=== PATIENT | male | born 1985 | race African-American/Black ===

== ENCOUNTER 2016-08-01 12:11 | Emergency (ER) | payer OTHER ==
[~2016-08-01] VITALS: Ht 188 cm; Wt 127.0 kg
[~2016-08-01 12:11] MED LIST: DILAUDID2 M1 PO; LEVETIRACETAM1000 MG PO; MASON NATURAL325 MG PO; METAMUCIL1 PAC PO; NORVASC 5MG TAB5 MG PO; PANTOPRAZOLE SO40 MG PO; PROMETHAZINE HC25 M3 PO; TRAMADOL50 MG PO; VICODIN 300 MG-1 TAB PO; VICODIN 500 MG-1 TAB PO; ZOFRAN 4 MG TABL4 MG PO; ZOFRAN ODT4 MG PO
--- NOTE | 2016-08-01 12:22 | ED GI/GU/ABDOMINAL COMPLAINT ---
History of Present Illness General Chief Complaint: Abdominal Pain/Flank Pain Stated Complaint: ABD PAIN, VOMITING Source: patient Exam Limitations: no limitations Vital Signs & Intake/Output Vital Signs & Intake/Output Vital Signs Date Time Temp Pulse Resp B/P Pulse O2 O2 Flow FiO2 Ox Delivery Rate 08/01 1453 99.8 76 18 137/64 97 Room Air 08/01 1339 Room Air 08/01 1304 99.2 72 16 174/84 100 Room Air 08/01 1239 99.5 63 18 167/85 99 Room Air 08/01 1217 97.6 80 20 164/103 99 Room Air ED Intake and Output 08/02 0000 08/01 1200 Intake Total 1000 Output Total Balance 1000 Intake, IV 1000 Patient 280 lb Weight Allergies Coded Allergies: NO KNOWN ALLERGIES (04/13/14) Reconcile Medications Acetaminophen/Hydrocodone Bi (Vicodin 500 MG-5 MG) 1 TAB TAB 1 TAB PO Q412 PRN PAIN Amlodipine (Norvasc 5MG Tab) 5 MG TABLET 1 TAB PO DAILY HTN (Reported) Ferrous Sulfate 325 MG (65 MG IRON) TABLET 1 TAB PO DAILY LOW IRON (Reported) HYDROCODONE/ACETAMINOPHEN (Vicodin 5-300 MG Tablet) 5 MG-300 MG TABLET 1 TAB PO Q4-6 PRN PAIN Hydromorphone HCl (Dilaudid) 2 MG TABLET 1 TAB PO 4XDP PRN pain Hyoscyamine (Levsin) 0.125 MG TABLET 1 TAB PO Q4 PRN abdominal pain Levetiracetam 1,000 MG TABLET 1 TAB PO BID SEIZURES (Reported) Ondansetron (Zofran 4 MG Tablet) 4 MG TAB 1 TAB PO Q6 PRN NAUSEA Ondansetron (Zofran Odt) 4 MG TAB.RAPDIS 1 TAB PO Q8P PRN NAUSEA Pantoprazole Sodium 40 MG TABLET.DR 1 TAB PO DAILY GERD (Reported) Prochlorperazine Maleate (Compazine) 10 MG TABLET 1 TAB PO TID PRN NAUSEA Promethazine HCl 25 MG TABLET 1 TAB PO Q6P PRN nausea Psyllium Hydrophylic Muciloid (Metamucil Packet) 3.4 GRAM POWD.PACK 1 PAC PO PRN BI HEALTH (Reported) Triage Note: RECEIVED 31 YO MALE C/O ABDOMINAL PAIN X ONE WEEK WITH NAUSEA AND VOMITING. PT REPORTS HE IS UNABLE TO KEEP ANYTHING DOWN. PT BEEN TAKING NAUSEA MEDS AND PAIN MEDS AT HOME. Triage Nurses Notes Reviewed? yes Onset: Gradual Duration: week(s): (1) Timing: recent history Quality/Severity: cramping Severity Numbers: 8 Location: generalized abdomen Radiation: no radiation Activities at Onset: none Prior Abdominal Problems: similar symptoms Past Sexual History: Unobtainable at this time HPI: Patient is a 31-year-old male who smokes marijuana daily presenting to the emergency Department chief complaint of diffuse abdominal pain, nausea and vomiting worsening over the past 1 week. Patient reports he had similar symptoms in the past and he was treated with IV fluids, nausea medication. Denies following up with his primary care physician. Denies any chest pain, palpitations. Denies recent travel. Positive decked out fevers and chills. Positive malaise. (SON LITTLE) Past History Travel History Traveled to [place] past 21 day No Medical History Any Pertinent Medical History? see below for history Blood Disorders: anemia History of MRSA: No Surgical History Surgical History: none Psychosocial History What is your primary language Moroccan Family History Hx Contributory? No (SON LITTLE) Review of Systems Review of Systems Constitutional: Reports: malaise. Comments Review of systems: See HPI, All other systems negative. Constitutional, no weight loss HEENT: No visual changes no sore throat no congestion Cardiovascular: No chest pain ,palpitation , orthopnea or ankle swelling Skin, no jaundice no rashes Respiratory: No dyspnea cough sputum or hemoptysis GI: Positive Nausea, vomiting : No dysuria No hematuria Muscle skeletal: no back pain, no neck pain, Neurologic: No numbness no confusion Psych: No stress anxiety or depression,. Heme/endocrine: No bruising no bleeding no polyuria or polydipsia Immunology: No splenectomy or history of AIDS (SON LITTLE) Physical Exam Physical Exam General Appearance: alert, awake, mild distress Gastrointestinal: normal bowel sounds, soft, non-tender Comments: Well-developed well-nourished person in no acute distress HEENT: Pupils equally round and reactive to light and accommodation. Nose is atraumatic. External auditory canal and Tympanic membranes clear. Pharynx normal. No swelling or edema. Slightly dry oral mucosa. Neck: Normal inspection Cardiovascular: Regular rate and rhythms no murmurs rubs or gallops, normal JVP Respiratory: Chest nontender. No respiratory distress.breath sounds clear to auscultation bilaterally Abdomen: Soft, nontender nondistended, no appreciable organomegaly. Normal bowel sounds. No ascites no rebound or guarding Extremity: No edema Neuro: Alert oriented x3 Skin: No appreciable rash on exposed skin, skin is warm and dry. Psych: Mood and affect is normal, memory and judgment is normal. Core Measures ACS in differential dx? No Severe Sepsis Present: No Septic Shock Present: No (INES PAUL,SON) Progress Differential Diagnosis: appendicitis, biliary colic, diverticulitis, gastritis, ureterolithiasis, UTI/pyelo, CYCLICAL VOMITING SYNDROME, DEHYDRATION, ELECTROLYTE ABNORMALITY, PANCREATITIS Plan of Care: Orders Procedure Date/time Status URINALYSIS 08/01 1221 Complete LIPASE 08/01 1221 Complete COMPREHENSIVE METABOLIC PANEL 08/01 1221 Complete CBC WITHOUT DIFFERENTIAL 08/01 1221 Complete AMYLASE 08/01 1221 Complete Laboratory Tests 08/01/16 1423: Urinalysis MOD H, Urine Color YULY, Urine Clarity CLEAR, Urine pH 6.0, Ur Specific [place] >= 1.030, Urine Protein 100 H, Urine Ketones >=80, Urine Nitrite NEG, Urine Bilirubin NEG, Urine Urobilinogen 0.2, Ur Leukocyte Esterase NEG, Ur Microscopic SEDIMENT EXAMINED, Urine WBC RARE, Ur Epithelial Cells RARE, Hyaline Casts RARE H, Urine Mucus PACKD H, Urine Hemoglobin NEG, Urine Glucose NEG 08/01/16 1225: Anion Gap 16, Estimated GFR > 60, BUN/Creatinine Ratio 14.4, Glucose 125 H, Calcium 10.1, Total Bilirubin 0.7, AST 25, ALT 47, Alkaline Phosphatase 81, Total Protein 8.8 H, Albumin 5.0, Globulin 3.8, Albumin/Globulin Ratio 1.3, Amylase 106, Lipase 93, CBC w Diff MAN DIFF ORDERED, RBC 4.86, MCV 64.8 L, MCH 19.5 L, RDW 20.2 H, MPV 9.8, Segmented Neutrophils 86 H, Band Neutrophils 1, Lymphocytes 10 L, Monocytes 3, Platelet Estimate ADEQUATE, Hypochromic- Microcytic 3+, Poikilocytosis 3+, Anisocytosis 2+, Microcytic Cells 2+, Ovalocytes 2+, Elliptocytes 2+, PUBS MCHC 30.1 L Initial ED EKG: none Comments: 08/01/2016 1:51:25 PM at arrival patient is afebrile in no acute distress, no abdominal pain on exam. Patient will be medicated with IV fluids, IV Phenergan and Ativan. Patient does smoke marijuana twice a day. He's been doing this for "a while. This could be congealing to patient's symptoms. Patient will be reevaluated once medicated. 08/01/2016 2:51:58 PM patient resting quietly in no acute distress. Patient has not vomited once in the emergency department. There was some sputum in the basin but no vomiting. Patient will be started on nausea medication and medication help with his abdominal discomfort. Patient is afebrile, nontender and no elevation in white blood cell come. No indication for CT of the abdomen at this time. Patient tolerating by mouth without nausea or vomiting. Patient discharged home. He'll follow with PCP. (SON LITTLE) Departure Departure Time of Disposition: 1414 Disposition: HOME OR SELF CARE Condition: Stable Clinical Impression Primary Impression: Nausea & vomiting Qualifiers: Vomiting type: unspecified Vomiting Intractability: non-intractable Qualified Code: R11.2 - Nausea with vomiting, unspecified Referrals: MERARI MCKEON (PCP/Family) JORDAN MENDENHALL,KENNETH Griffith Additional Instructions: Follow-up with your primary care physician and gastroenterology call to make appointment. Increase fluids. Take Compazine as prescribed for nausea. Take Bentyl to help with abdominal pain. Quit smoking marijuana as this could be contributing to her symptoms. Departure Forms: Customer Survey General Discharge Information Prescriptions: Current Visit Scripts Hyoscyamine (Levsin) 1 TAB PO Q4 PRN abdominal pain #15 TAB Prochlorperazine Maleate (Compazine) 1 TAB PO TID PRN NAUSEA #10 TAB (SON LITTLE) PA/BEEF CATTLE FARMER Co-Sign Statement Statement: ED Attending supervision documentation- [] I saw and evaluated the patient. I have also reviewed all the pertinent lab results and diagnostic results. I agree with the findings and the plan of care as documented in the PA's/BEEF CATTLE FARMER's documentation. X I have reviewed the ED Record and agree with the PA's/BEEF CATTLE FARMER's documentation. [] Additions or exceptions (if any) to the PAs/BEEF CATTLE FARMER's note and plan are summarized below: [] (ANILA MENDENHALL,JOSE ROBERTO)
[2016-08-01 12:38] LABS: HEMATOCRIT 31.5 % (42-52); MEAN CORPUSCULAR VOLUME 64.8 FL (80.0-94.0); MEAN PLATELET VOLUME 9.8 FL (7.4-10.4)
[2016-08-01 12:43] LABS: MEAN CORPUSCULAR HGB 19.5 PG (27.0-31.0); MEAN CORPUSCULAR HGB CONC 30.1 G/DL (33.0-37.0); PLATELET COUNT 332 /CUMM (130-400); RBC DISTRIBUTION WIDTH 20.2 % (11.5-14.5); RED BLOOD CELL CT 4.86 /CUMM (4.70-6.10); WHITE BLOOD CELL COUNT 8.8 /CUMM (4.8-10.8)
[2016-08-01] MEDS ORDERED: COMPAZINE10 M1 PO (14:17)
[2016-08-01] MEDS ORDERED: LEVSIN0.125 M1 PO (14:17)
[2016-08-01 14:53] VITALS: BP 137/64
[2016-08-02] MEDS ORDERED: ULTRAM50 M1 PO (12:33)
[2016-08-02] MEDS ORDERED: KEPPRA1000 M1 PO (15:24)
[2016-08-02] MEDS ORDERED: ZOFRAN ODT4 M1 SL (15:24)
[2016-08-02] MEDS ORDERED: COMPAZINE10 M1 PO (17:01)
[2016-08-02] MEDS ORDERED: VICODIN 5-3001 EACH PO (17:08)
== END 2016-08-01 15:48 ==
LOC: ERH 12:11
PROVIDERS: Physician Assistant
DX: R11.2 Nausea with vomiting, unspecified (principal)
CPT/HCPCS: 81001; 96361; 96374; 96375; J1885; J2405; J2550

== ENCOUNTER 2016-08-02 07:44 | Emergency (ER) | payer OTHER ==
[~2016-08-02] VITALS: Ht 188 cm; Wt 124.7 kg
[~2016-08-02 07:44] MED LIST changes: +COMPAZINE10 M1 PO; +LEVSIN0.125 M1 PO
--- NOTE | 2016-08-02 08:42 | ED GI/GU/ABDOMINAL COMPLAINT ---
History of Present Illness General Chief Complaint: Abdominal Pain/Flank Pain Stated Complaint: VOMITING ABD PAIN SEEN HERE YESTERDAY FOR SAME Source: patient, old records Exam Limitations: no limitations Vital Signs & Intake/Output Vital Signs & Intake/Output Vital Signs Date Time Temp Pulse Resp B/P Pulse O2 O2 Flow FiO2 Ox Delivery Rate 08/02 1651 100.1 76 16 152/76 99 Room Air 08/02 1451 100.2 74 20 142/81 97 Room Air 08/02 1334 100.9 73 20 152/95 99 Room Air 08/02 1104 98.0 88 19 158/86 97 Room Air 08/02 0902 Room Air Room Air 08/02 0757 99.0 85 20 167/103 99 Room Air Allergies Coded Allergies: NO KNOWN ALLERGIES (08/02/16) Reconcile Medications Amlodipine (Norvasc 5MG Tab) 5 MG TABLET 1 TAB PO DAILY HTN (Reported) Hyoscyamine (Levsin) 0.125 MG TABLET 1 TAB PO Q4 PRN abdominal pain Levetiracetam 1,000 MG TABLET 1 TAB PO BID SEIZURES (Reported) Levetiracetam (Keppra) 1,000 MG TABLET 1 TAB PO BID seizure Ondansetron (Zofran 4 MG Tablet) 4 MG TAB 1 TAB PO Q6 PRN NAUSEA Ondansetron (Zofran Odt) 4 MG TAB.RAPDIS 1 TAB SL TID PRN nausea Triage Note: C/O WORSENING ABDOMINAL PAIN WITH VOMITING, UNABLE TO SLEEP X 1 WEEK. SEEN HERE YESTERDAY FOR SXS. MEDS NOT HELPING (HYOSCAMINE AND PNERGAN). STATES HE IS HAVING DIFFICULTY URINATING. Triage Nurses Notes Reviewed? yes Onset: Last week Duration: day(s):, continues in ED, waxing and waning Timing: recent history Quality/Severity: aching, cramping, moderate, severe, vomiting Location: left lower quadrant, right lower quadrant Radiation: no radiation Activities at Onset: eating Prior Abdominal Problems: similar symptoms Past Sexual History: Unobtainable at this time Modifying Factors: Worsens With: eating. Associated Symptoms: abdominal pain, loss of appetite, nausea/vomiting HPI: 1 week prior to admission patient complains of bilateral lower quadrant abdominal pain described as moderate to severe aching nonradiating associated with nausea vomiting decreased appetite. Increasing yesterday with negative workup. He had CT scan last month that was normal. He denies fever chills chest pain cough shortness of breath headache dysuria rash. Past History Travel History Traveled to [place] past 21 day No Medical History Any Pertinent Medical History? see below for history Neurological: NONE EENT: NONE Cardiovascular: NONE Respiratory: NONE Gastrointestinal: HEMMORHOIDS Hepatic: NONE Renal: NONE Musculoskeletal: NONE Psychiatric: NONE Endocrine: NONE Blood Disorders: anemia Cancer(s): NONE History of MRSA: No Surgical History Surgical History: none Psychosocial History What is your primary language Bulgarian Tobacco Use: Current Daily Use Daily Tobacco Use Amount/Type: => 5 Cigarettes daily ETOH Use: occasional use Family History Hx Contributory? No Review of Systems Review of Systems Constitutional: Reports: see HPI, malaise, weakness. EENTM: Reports: no symptoms. Respiratory: Reports: no symptoms. Cardiovascular: Reports: no symptoms. GI: Reports: see HPI, abdominal pain, nausea. Genitourinary: Reports: no symptoms. Musculoskeletal: Reports: no symptoms. Skin: Reports: no symptoms. Neurological/Psychological: Reports: no symptoms. Hematologic/Endocrine: Reports: no symptoms. Immunologic/Allergic: Reports: no symptoms. All Other Systems: Reviewed and Negative Physical Exam Physical Exam General Appearance: well developed/nourished, alert, awake, anxious, moderate distress, obese Head: atraumatic, normal appearance Eyes: Bilateral: normal appearance, PERRL, EOMI, normal inspection. Ears, Nose, Throat, Mouth: hearing grossly normal, moist mucous membrane Neck: normal inspection, supple, full range of motion, normal alignment Respiratory: normal breath sounds, chest non-tender, no respiratory distress, quiet respiration, lungs clear Cardiovascular: regular rate/rhythm, normal peripheral pulses, norml femoral pulses equa Peripheral Pulses: 4+ carotid (R), 4+ carotid (L) Gastrointestinal: normal bowel sounds, soft, non-tender, no organomegaly Male Genitals: normal genitalia Back: normal inspection, normal range of motion Extremities: normal range of motion, no ligament instability Neurologic/Psych: no motor/sensory deficits, awake, alert, oriented x 3, normal gait, normal mood/affect Skin: intact, normal color Core Measures ACS in differential dx? No Severe Sepsis Present: No Septic Shock Present: No Progress Differential Diagnosis: gastritis, UTI/pyelo, adverse marijuana effects Plan of Care: Orders Procedure Date/time Status URINE DRUG SCREEN FOR ER ONLY 08/02 817 Complete URINALYSIS 08/02 817 Complete LIPASE 08/02 817 Complete COMPREHENSIVE METABOLIC PANEL 08/02 817 Complete CBC WITHOUT DIFFERENTIAL 08/02 817 Complete Laboratory Tests 08/02/16 1100: Urine Opiates Screen < 100.00, Methadone Screen 59, Barbiturate Screen < 60, Ur Phencyclidine Scrn < 6.00, Amphetamines Screen < 100, U Benzodiazepines Scrn < 85, Urine Cocaine Screen < 50, Urine Cannabis Screen > 80.00 H, Urinalysis LIGHT H, Urine Color YEL, Urine Clarity CLEAR, Urine pH 7.5, Ur Specific Cameron 1.020, Urine Protein TRACE H, Urine Ketones 15 H, Urine Nitrite NEG, Urine Bilirubin NEG, Urine Urobilinogen 0.2, Ur Leukocyte Esterase NEG, Ur Microscopic SEDIMENT EXAMINED, Urine RBC 1-3, Urine WBC 1-3 H, Hyaline Casts RARE H, Urine Mucus PACKD H, Urine Hemoglobin NEG, Urine Glucose NEG 08/02/16 0841: Anion Gap 10, Estimated GFR > 60, BUN/Creatinine Ratio 15.6, Glucose 103 H, Calcium 9.5, Total Bilirubin 0.7, AST 22, ALT 40, Alkaline Phosphatase 69, Total Protein 8.0, Albumin 4.6, Globulin 3.4, Albumin/Globulin Ratio 1.4, Lipase 240, CBC w Diff MAN DIFF ORDERED, RBC 4.54 L, MCV 65.3 L, MCH 19.6 L, RDW 20.1 H, MPV 9.8, Segmented Neutrophils 72, Lymphocytes 17 L, Monocytes 11 H, Platelet Estimate ADEQUATE, Hypochromic-Microcytic 3+, Poikilocytosis 3+, Anisocytosis 2+ , Microcytic Cells 2+, Ovalocytes 2+, Elliptocytes 2+, Schistocytes 1+, PUBS MCHC 30.0 L Initial ED EKG: none Comments: Non compliant with Keppra with generalized seizure less than 1 minute. Having 2nd one prior to administration of Keppra or Ativan. Departure Departure Time of Disposition: 1651 Disposition: HOME OR SELF CARE Condition: Stable Clinical Impression Primary Impression: Abdominal pain Qualifiers: Abdominal location: unspecified location Qualified Code: R10.9 - Unspecified abdominal pain Secondary Impressions: Marijuana abuse, Seizure disorder Referrals: MERARI MCKEON (PCP/Family) Departure Forms: Customer Survey General Discharge Information Prescriptions: Current Visit Scripts Levetiracetam (Keppra) 1 TAB PO BID #60 TAB Ref 1 Ondansetron (Zofran Odt) 1 TAB SL TID PRN nausea #15 TAB Critical Care Note Critical Care Note Critical Care Time: 30-74 min (40)
[2016-08-02 08:51] LABS: RED BLOOD CELL CT 4.54 /CUMM (4.70-6.10)
[2016-08-02 08:54] LABS: HEMATOCRIT 29.6 % (42-52); MEAN CORPUSCULAR HGB 19.6 PG (27.0-31.0); MEAN CORPUSCULAR VOLUME 65.3 FL (80.0-94.0); MEAN PLATELET VOLUME 9.8 FL (7.4-10.4); PLATELET COUNT 308 /CUMM (130-400); RBC DISTRIBUTION WIDTH 20.1 % (11.5-14.5)
[2016-08-02] MEDS ORDERED: ULTRAM50 M1 PO (12:33)
[2016-08-02] MEDS ORDERED: ZOFRAN ODT4 M1 SL (15:24)
[2016-08-02] MEDS ORDERED: KEPPRA1000 M1 PO (15:24)
[2016-08-02 16:51] VITALS: BP 152/76
[2016-08-02] MEDS ORDERED: COMPAZINE10 M1 PO (17:01)
[2016-08-02] MEDS ORDERED: VICODIN 5-3001 EACH PO (17:08)
== END 2016-08-02 17:09 ==
LOC: ERH 07:44
PROVIDERS: Emergency Medicine
DX: R10.31 Right lower quadrant pain (principal); R10.32 Left lower quadrant pain; F12.10 Cannabis abuse, uncomplicated; G40.909 Epilepsy, unspecified, not intractable, without status epilepticus
CPT/HCPCS: 80307; 81001; 96374; 96375; 99291; J0131; J1885; J1953; J2550